=== PATIENT | female | born 2000 | race Two or more races ===

== ENCOUNTER 2024-02-02 20:24 | Emergency (ER) | payer OTHER ==
[~2024-02-02] VITALS: Ht 152.4 cm; Wt 45.4 kg
[~2024-02-02 20:24] MED LIST: DICY20TA; ZITHROMAX500 MG; ZOFRAN8 MG
[2024-02-02] MEDS ORDERED: GUAIFENESIN 200 MG/10 ML BLIST.PACK PO ONE (21:30)
[2024-02-02] MEDS ORDERED: FAMOtidine 10 MG/ML (4ML VIAL) IV PUSH ONE (21:30)
[2024-02-02] MEDS ORDERED: LORATADINE/PSEUDOEPHEDRINE 1 TAB TAB.SR.24H PO ONE (21:30)
[2024-02-02 22:16] LABS: HEMATOCRIT 38.6 % (36.0-45.00); HEMOGLOBIN 13.2 g/dL (12.0-15.00); MEAN CELL VOLUME 86.6 fL (80.00-100.00); MEAN CORPUSCULAR HEMOGLOBIN 29.5 pg (27.00-32.0); MEAN CORPUSCULAR HGB CONC 34.1 g/dl (32.0-36.0); PLATELET COUNT 193 K/uL (150-450); RED BLOOD COUNT 4.46 M/uL (4.00-6.00); RED CELL DISTRIBUTION WIDTH 13.4 % (11.5-14.5)
[2024-02-02] MEDS ORDERED: PEPCID AC20 MG PO (22:21)
[2024-02-02] MEDS ORDERED: OSEL75CA PO (22:21)
[2024-02-02] MEDS ORDERED: ONDANSETRON HCL 2 MG/ML VIAL IM ONE (22:45)
== END 2024-02-02 23:28 | disposition home or self-care (01) ==
LOC: ER 20:26
PROVIDERS: General Practice
DX: R53.81 Other malaise (principal); J10.1 Influenza due to other identified influenza virus with other respiratory manifestations; Z20.822 Contact with and (suspected) exposure to COVID-19

== ENCOUNTER 2025-01-31 01:10 | Emergency (ER) | payer OTHER ==
[~2025-01-31] VITALS: Ht 152.4 cm; Wt 45.4 kg
[~2025-01-31 01:10] MED LIST changes: +OSEL75CA PO; +PEPCID AC20 MG PO
[2025-01-31] MEDS ORDERED: KETOROLAC TROMETHAMINE 60 MG VIAL IM STA (02:04)
[2025-01-31] MEDS ORDERED: PROMETHAZINE HCL 50 MG/ML AMPUL IM STA (02:05)
[2025-01-31] MEDS ORDERED: PROMETHAZINE HCL 50 MG/ML AMPUL IM ONE (02:10)
[2025-01-31] MEDS ORDERED: KETOROLAC TROMETHAMINE 60 MG VIAL IM ONE (02:11)
[2025-01-31] MEDS ORDERED: 0.9 % SODIUM CHLORIDE 1,000 ML IV ONE (02:15)
[2025-01-31 02:43] LABS: BASO % 0.5 % (0.1-1.2); EOS # 0.19 (0.04-0.54); EOS % 1.5 % (0.7-7.0); LYMPH # 1.53 (1.18-3.74); LYMPH % 11.7 % (19.3-53.1); MEAN PLATELET VOLUME 10.60 fl (9.4-12.4); MONO # 0.92 (0.24-0.82); MONO % 7.0 % (4.7-12.5); NEUT # 10.33 (1.56-6.13); NEUT % 79.0 % (34.0-71.1); RED CELL DISTRIBUTION WIDTH 12.4 % (11.6-14.4)
[2025-01-31 03:04] LABS: URINE APPEARANCE Clear; URINE BACTERIA 456.4 uL (0.0-1933); URINE BILIRRUBIN Negative (NEGATIVE); URINE BLOOD Negative; URINE COLOR Yellow; URINE EPITHELIAL CELLS 16.2 uL (0.0-38.8); URINE GLUCOSE Negative (NEGATIVE); URINE KETONE Negative (NEGATIVE); URINE LEUKOCYTE Negative; URINE NITRATE Negative; URINE PROTEIN Negative (NEGATIVE); URINE RBC 2.1 uL (0.0-20.8); URINE UROBILINOGEN 0.2 E.U./dl; URINE WBC 11.1 uL (0.0-23.2)
[2025-01-31 03:18] LABS: ALT/SGPT 26 U/L (12-78); AST/SGOT 13 U/L (15-37); BILIRUBIN TOTAL 0.48 mg/dL (0.3-1.2); BUN CREA RATIO 25 (7.0-25.0); CREATININE SERUM 0.65 mg/dL (0.55-1.02); GFR 112.95; GLOBULINA 4.3 G/DL (2.4-3.5); GLUCOSE FASTING 106 mg/dL (65-100); OSMOLALITY SERUM 283 MOSM/KG (275-295)
[2025-01-31 03:31] LABS: HCG QUANTITATIVE < 1 mUI/mL (1-3); URINE CAST 0.56 uL (0.0-1.40)
[2025-01-31] MEDS ORDERED: CEFUROXIME500 MG PO (12:10)
[2025-01-31] MEDS ORDERED: NORFLEX100MG PO (12:10)
[2025-01-31] MEDS ORDERED: ZOFRAN8 MG PO (12:10)
== END 2025-01-31 12:39 | disposition home or self-care (01) ==
LOC: ER 01:10
PROVIDERS: General Practice
DX: R10.20 Pelvic and perineal pain unspecified side (principal); N94.0 Mittelschmerz